=== PATIENT | female | born 1980 | race Caucasian/White ===

== ENCOUNTER 2022-05-19 14:17 | Outpatient (CLI) | payer OTHER | END 2022-05-19 14:18 | disposition home or self-care (01) | LOC: CSHMAMMO 14:17 | PROVIDERS: ATTEND Obstetrics & Gynecology | DX: Z12.31 Encounter for screening mammogram for malignant neoplasm of breast (principal); N64.89 Other specified disorders of breast; Z80.3 Family history of malignant neoplasm of breast | CPT/HCPCS: 77063; 77067 ==

== ENCOUNTER 2025-01-24 13:43 | Outpatient (CLI) | payer OTHER | END 2025-01-24 13:44 | disposition home or self-care (01) | LOC: CSHMRI 13:43 | PROVIDERS: ATTEND Obstetrics & Gynecology | DX: Z91.89 Other specified personal risk factors, not elsewhere classified (principal); N63.20 Unspecified lump in the left breast, unspecified quadrant | CPT/HCPCS: C8908 ==

== ENCOUNTER 2025-02-03 11:11 | Outpatient (CLI) | payer OTHER | END 2025-02-03 11:12 | disposition home or self-care (01) | LOC: CSHULT 11:11 | PROVIDERS: ATTEND Obstetrics & Gynecology | DX: N63.24 Unspecified lump in the left breast, lower inner quadrant (principal) ==

== ENCOUNTER → 2025-02-17 | Day surgery (SDC) | payer OTHER | LOC: CSHULT 12:21 | PROVIDERS: ATTEND Obstetrics & Gynecology | PROC: 0HBU3ZX Excision of Left Breast, Percutaneous Approach, Diagnostic (ICD-10-PCS; principal; 2025-02-17) | DX: N62 Hypertrophy of breast (principal); N60.82 Other benign mammary dysplasias of left breast; N60.32 Fibrosclerosis of left breast | CPT/HCPCS: 19083; 88305; A4648 ==